=== PATIENT | female | born 1985 | race Caucasian/White ===

== ENCOUNTER 2021-06-27 16:55 | Emergency (ER) | payer BC, OTHER ==
[2021-06-27 17:04] VITALS: BP 122/73; PULSE 80
[2021-06-27] MEDS ORDERED: Sodium Chloride 0.9% 10 ML Syringe FLUSH PRN (17:16)
--- NOTE | 2021-06-27 17:47 | EDM.PDOC ---
ED HPI GENERAL MEDICAL PROBLEM - General Chief Complaint: Chest Pain Stated Complaint: chest pain Time Seen by Provider: 06/27/21 17:00 Source of Information: Reports: Patient, RN Notes Reviewed History Limitations: Reports: No Limitations - History of Present Illness INITIAL COMMENTS - FREE TEXT/NARRATIVE: Patient is a 36-year-old female presenting to the emergency department with complaints of intermittent palpitations since this morning. She reports about every 15 to 20 minutes have a palpitation with last only a second. Reports this causes a "zapping "pain into her right arm that lasts only a moment. Occasionally has pain into her back. She denies any chest pain at this time. She reports that she has suspected that she is had something wrong with her heart sometime. She feels like she has generalized edema and occasionally is short of breath. She saw her primary care provider, Dr. Courtney, on Saturday of this week. States that she completed blood work and listen to her heart and found no abnormalities with the exception of her triglycerides being exceptionally elevated. She did say that her doctor told her that her liver may not be functioning normally. - Related Data Allergies Allergy/AdvReac Type Severity Reaction Status Date / Time No Known Allergies Allergy Verified 06/27/21 17:10 Home Meds: Home Meds Fenofibrate 160 mg PO DAILY 06/27/21 [History] Past Medical History HEENT History: Reports: Impaired Vision Other HEENT History: wears eyeglasses Cardiovascular History: Reports: High Cholesterol Respiratory History: Reports: Pneumonia, Recurrent Genitourinary History: Reports: UTI, Recurrent PERSONALIZED LIVING MANAGER NURSE History: Reports: , Other (See Below) Other PERSONALIZED LIVING MANAGER NURSE History: uterine ablation due to excessive bleeding. Hematologic History: Reports: Anemia, Iron Deficiency Other Hematologic History: during . Oncologic (Cancer) History: Reports: Basal Cell Carcinoma, Malignant Melanoma, Other (See Below) Other Oncologic History: skin cancer--not malignant, currently being tested for breast cancer. - Infectious Disease History Infectious Disease History: Reports: Chicken Pox, Novel Coronavirus, Other (See Below) Other Infectious Disease History: toxic shock at age 15 and went into cardiac arrest. - Past Surgical History Other GI Surgeries/Procedures: "Tummy tuck" Female Surgical History: Reports: Section Social & Family History - Tobacco Use Tobacco Use Status *Q: Never Tobacco User Second Hand Smoke Exposure: No - Caffeine Use Caffeine Use: Reports: Soda Caffeine Use Comment: not in 2 weeks. - Recreational Drug Use Recreational Drug Use: No ED ROS GENERAL - Review of Systems Review Of Systems: See Below Constitutional: Reports: No Symptoms. Denies: Fever, Chills HEENT: Reports: No Symptoms Respiratory: Reports: Shortness of Breath, Cough. Denies: Wheezing, Pleuritic Chest Pain Cardiovascular: Reports: Chest Pain (brief "zapping" which radiates into her right arm), Dyspnea on Exertion (occasional), Edema (generalized ) Endocrine: Reports: No Symptoms GI/Abdominal: Reports: No Symptoms : Reports: No Symptoms Musculoskeletal: Reports: No Symptoms Skin: Reports: No Symptoms Neurological: Reports: No Symptoms Psychiatric: Reports: No Symptoms Hematologic/Lymphatic: Reports: No Symptoms Immunologic: Reports: No Symptoms ED EXAM, GENERAL - Physical Exam Exam: See Below General Appearance: Alert, WD/WN, No Apparent Distress Respiratory/Chest: No Respiratory Distress, Lungs Clear, Normal Breath Sounds, No Accessory Muscle Use, Chest Non-Tender Cardiovascular: Normal Peripheral Pulses, Regular Rate, Rhythm, No Edema, No Gallop, No JVD, No Murmur, No Rub GI/Abdominal: Normal Bowel Sounds, Soft, Non-Tender, No Organomegaly, No Distention, No Abnormal Bruit, No Mass Neurological: Alert, Oriented, CN II-XII Intact, Normal Cognition, Normal Gait, Normal Reflexes, No Motor/Sensory Deficits Psychiatric: Normal Affect, Normal Mood Skin Exam: Warm, Dry, Intact, Normal Color, No Rash #1 Interpretation EKG Date: 06/27/21 Time: 17:04 Rhythm: Other (sinus or ectopic rhythm) Rate (Beats/Min): 76 [place]: Normal P-Wave: Present QRS: Normal ST-T: Normal QT: Normal Course - Vital Signs Last Recorded V/S: Last Vital Signs Temp 95.9 F L 06/27/21 17:00 Pulse 80 06/27/21 17:00 Resp 18 06/27/21 17:00 BP 122/73 06/27/21 17:00 Pulse Ox 98 06/27/21 17:00 - Orders/Labs/Meds Orders: Active Orders 24 hr Category Date Time Status Chest 2V [CR] Stat Exams 06/27/21 17:16 Taken Peripheral IV Insertion Adult [OM.PC] Stat Oth 06/27/21 17:16 Ordered Labs: Laboratory Tests 06/27/21 06/27/21 06/27/21 Range/Units 17:05 17:05 17:05 WBC 7.70 (3.98-10.04) K/mm3 RBC 4.50 (3.98-5.22) M/mm3 Hgb 14.4 (11.2-15.7) gm/dl Hct 40.3 (34.1-44.9) % MCV 89.6 (79.4-94.8) fl MCH 32.0 (25.6-32.2) pg MCHC 35.7 H (32.2-35.5) g/dl RDW Std Deviation 37.3 (36.4-46.3) fL Plt Count 218 (182-369) K/mm3 MPV 10.8 (9.4-12.3) fl Neut % (Auto) 51.4 (34.0-71.1) % Lymph % (Auto) 41.9 (19.3-51.7) % [place] % (Auto) 4.8 (4.7-12.5) % Eos % (Auto) 1.2 (0.7-5.8) Baso % (Auto) 0.3 (0.1-1.2) % Neut # (Auto) 3.96 (1.56-6.13) K/mm3 Lymph # (Auto) 3.23 (1.18-3.74) K/mm3 [place] # (Auto) 0.37 H (0.24-0.36) K/mm3 Eos # (Auto) 0.09 (0.04-0.36) K/mm3 Baso # (Auto) 0.02 (0.01-0.08) K/mm3 D-Dimer, Quantitative (0.19-0.50) mg/L Sodium 141 (136-145) mEq/L Potassium 3.6 (3.5-5.1) mEq/L Chloride 104 (98-107) mEq/L Carbon Dioxide 27 (21-32) mEq/L Anion Gap 13.6 (5-15) BUN 20 H (7-18) mg/dL Creatinine 1.0 (0.55-1.02) mg/dL Est Cr Clr Drug Dosing 65.57 mL/min Estimated GFR (MDRD) > 60 (>60) mL/min BUN/Creatinine Ratio 20.0 H (14-18) Glucose 110 H (70-99) mg/dL Calcium 9.2 (8.5-10.1) mg/dL Total Bilirubin 0.5 (0.2-1.0) mg/dL AST 74 H (15-37) U/L ALT 137 H (14-59) U/L Alkaline Phosphatase 63 (46-116) U/L Troponin I < 0.017 (0.00-0.056) ng/mL NT-Pro-B Natriuret Pep 28 (0-125) pg/mL Total Protein 7.6 (6.4-8.2) g/dl Albumin 4.1 (3.4-5.0) g/dl Globulin 3.5 gm/dL Albumin/Globulin Ratio 1.2 (1-2) Urine Color (Yellow) Urine Appearance (Clear) Urine pH (5.0-8.0) Ur Specific [place] (1.005-1.030) Urine Protein (Negative) Urine Glucose (UA) (Negative) Urine Ketones (Negative) Urine Occult Blood (Negative) Urine Nitrite (Negative) Urine Bilirubin (Negative) Urine Urobilinogen (0.2-1.0) Ur Leukocyte Esterase (Negative) Urine RBC (0-5) /hpf Urine WBC (0-5) /hpf Ur Squamous Epith Cells (0-5) /hpf Urine Bacteria (FEW) /hpf Urine Mucus (FEW) /hpf 06/27/21 06/27/21 Range/Units 17:05 17:40 WBC (3.98-10.04) K/mm3 RBC (3.98-5.22) M/mm3 Hgb (11.2-15.7) gm/dl Hct (34.1-44.9) % MCV (79.4-94.8) fl MCH (25.6-32.2) pg MCHC (32.2-35.5) g/dl RDW Std Deviation (36.4-46.3) fL Plt Count (182-369) K/mm3 MPV (9.4-12.3) fl Neut % (Auto) (34.0-71.1) % Lymph % (Auto) (19.3-51.7) % [place] % (Auto) (4.7-12.5) % Eos % (Auto) (0.7-5.8) Baso % (Auto) (0.1-1.2) % Neut # (Auto) (1.56-6.13) K/mm3 Lymph # (Auto) (1.18-3.74) K/mm3 [place] # (Auto) (0.24-0.36) K/mm3 Eos # (Auto) (0.04-0.36) K/mm3 Baso # (Auto) (0.01-0.08) K/mm3 D-Dimer, Quantitative 0.31 (0.19-0.50) mg/L Sodium (136-145) mEq/L Potassium (3.5-5.1) mEq/L Chloride (98-107) mEq/L Carbon Dioxide (21-32) mEq/L Anion Gap (5-15) BUN (7-18) mg/dL Creatinine (0.55-1.02) mg/dL Est Cr Clr Drug Dosing mL/min Estimated GFR (MDRD) (>60) mL/min BUN/Creatinine Ratio (14-18) Glucose (70-99) mg/dL Calcium (8.5-10.1) mg/dL Total Bilirubin (0.2-1.0) mg/dL AST (15-37) U/L ALT (14-59) U/L Alkaline Phosphatase (46-116) U/L Troponin I (0.00-0.056) ng/mL NT-Pro-B Natriuret Pep (0-125) pg/mL Total Protein (6.4-8.2) g/dl Albumin (3.4-5.0) g/dl Globulin gm/dL Albumin/Globulin Ratio (1-2) Urine Color Yellow (Yellow) Urine Appearance Clear (Clear) Urine pH 6.0 (5.0-8.0) Ur Specific [place] > or = 1.030 (1.005-1.030) Urine Protein 1+ H (Negative) Urine Glucose (UA) Negative (Negative) Urine Ketones Negative (Negative) Urine Occult Blood 1+ H (Negative) Urine Nitrite Negative (Negative) Urine Bilirubin Negative (Negative) Urine Urobilinogen 0.2 (0.2-1.0) Ur Leukocyte Esterase Negative (Negative) Urine RBC 5-10 H (0-5) /hpf Urine WBC 0-5 (0-5) /hpf Ur Squamous Epith Cells 5-10 H (0-5) /hpf Urine Bacteria Few (FEW) /hpf Urine Mucus Not seen (FEW) /hpf Meds: Medications Discontinued Medications Generic Name Dose Route Start Last Admin Trade Name Howie PRN Reason Stop Dose Admin Sodium Chloride 10 ml 06/27/21 17:16 06/27/21 17:40 Sodium Chloride 0.9% 10 Ml Syringe FLUSH 10 ml ASDIRECTED PRN Administration Keep Vein Open - Re-Assessments/Exams Free Text/Narrative Re-Assessment/Exam: 06/27/21 17:42 Reported to nurse that she had a couple of the episodes of "palpitations ". telemetry monitor was reviewed and showed no abnormalities in her heart rhythm. She has maintained normal sinus rhythm in the 80s. No visible PVCs, PACs, pauses, or tachycardia. 06/27/21 18:36 Hematology is grossly unremarkable with exception of minimally elevated liver enzymes. Urinalysis is normal. EKG shows a sinus or ectopic atrial rhythm at 76. She reports that she has had a couple of these "zapping" sensations while in the ER. I did review her telemetry monitor and there is no visible ectopy. I suspect her symptoms are being caused by muscle spasms. Discussed recommendation for Holter monitor with the patient, however she declined. She was given strict return precautions. Discharge instructions as documented. Departure - Departure Time of Disposition: 18:40 Disposition: Home, Self-Care 01 Condition: Good Clinical Impression: Atypical chest pain, Palpitations Instructions: Palpitations Referrals: Aydee Archibald MD [Primary Care Provider] - Forms: ED Department Discharge Additional Instructions: You were seen in the emergency department today for intermittent episodes of palpitations with a zapping pain in your chest into your arm. Work-up included blood work, EKG of your heart, chest x-ray, and urinalysis. Results of your work-up were found to be normal with the exception of slightly elevated liver enzymes. While in the ER, no abnormal heart rhythms were visualized on the telemetry monitor. Option of Holter monitor was discussed with you and declined. Recommend that if you should experience worsening of symptoms or any other symptoms of concern that you return to the emergency department for reevaluation. I would also recommend follow-up with your primary care provider at her next available visit. Sepsis Event Note (ED) - Evaluation Sepsis Screening Result: No Definite Risk - Focused Exam Vital Signs: Vital Signs Temp Pulse Resp BP Pulse Ox 06/27/21 17:00 95.9 F L 80 18 122/73 98 - My Orders Last 24 Hours: My Active Orders 06/27/21 17:16 Chest 2V [CR] Stat Peripheral IV Insertion Adult [OM.PC] Stat - Assessment/Plan Last 24 Hours: My Active Orders 06/27/21 17:16 Chest 2V [CR] Stat Peripheral IV Insertion Adult [OM.PC] Stat
--- NOTE | 2021-06-28 08:37 | CR ---
Chest: PA and lateral views of the chest were obtained. Comparison: Prior chest x-ray of 12/24/17. Heart size and mediastinum are normal. Lungs are clear with no acute parenchymal change. Bony structures show nothing acute. Impression: 1. Nothing acute is seen on 2 view chest x-ray. 2. No change is seen from prior chest x-ray. Diagnostic code #1
== END 2021-06-27 18:49 | disposition home or self-care (01) ==
LOC: JD.ED 16:55
DX: R07.89 Other chest pain (principal); R00.2 Palpitations; Z86.16 Personal history of COVID-19
CPT/HCPCS: 36415; 71046; 71046-26; 80053; 81001; 83880; 84484; 85025; 85379; 93005; 93010; 99284; 99285-25

== ENCOUNTER 2024-09-24 05:08 | Emergency (ER) | payer OTHER, BC ==
[2024-09-24 05:33] VITALS: BP 127/86; PULSE 83
[2024-09-24] MEDS: Promethazine 25 MG Tab PO ONE (06:30)
[2024-09-24] MEDS: HYDROmorphone 1 MG/ML Syringe IM ONE (06:30)
[2024-09-24] MEDS: predniSONE 20 MG Tab PO ONE (06:30)
== END 2024-09-24 06:50 | disposition home or self-care (01) ==
LOC: JD.ED 05:08
DX: M99.01 Segmental and somatic dysfunction of cervical region (principal); M62.838 Other muscle spasm; E78.00 Pure hypercholesterolemia, unspecified; Z86.16 Personal history of COVID-19; Z79.899 Other long term (current) drug therapy
CPT/HCPCS: 96372; 99283; J1171; J7512; J8597